=== PATIENT | female | born 1990 | race Two or more races ===

== ENCOUNTER → 2024-01-02 | Outpatient (CLI) | payer OTHER ==
[2024-01-03 08:07] LABS: Varicella Zoster IgG Antibody Reactive (Non Reactive)
[2024-01-03 10:06] LABS: Mumps IgG Antibody 22.9 AU/mL (Immune >10.9); Rubeola IgG Antibody 45.3 AU/mL (Immune >16.4)
== END | disposition home or self-care (01) ==
LOC: LAB 13:03
PROVIDERS: ATTEND Registered Nurse
DX: Z01.84 Encounter for antibody response examination (principal)
CPT/HCPCS: 36415; 86706; 86735; 86762; 86765; 86787